=== PATIENT | female | born 1990 | race Two or more races ===

== ENCOUNTER 2025-04-20 13:46 | Emergency (ER) | payer OTHER ==
[~2025-04-20] VITALS: Ht 165.1 cm; Wt 93.0 kg
[2025-04-20 14:00] VITALS: BP 125/79; O2SAT 99
[2025-04-20 16:39] LABS: BASO % 0.3 % (0.1-1.2); EOS # 0.49 (0.04-0.54); EOS % 2.6 % (0.7-7.0); LYMPH # 3.74 (1.18-3.74); LYMPH % 20.2 % (19.3-53.1); MEAN PLATELET VOLUME 9.80 fl (9.4-12.4); MONO # 0.88 (0.24-0.82); MONO % 4.8 % (4.7-12.5); NEUT # 13.23 (1.56-6.13); NEUT % 71.5 % (34.0-71.1); RED CELL DISTRIBUTION WIDTH 13.3 % (11.6-14.4)
[2025-04-20 17:13] LABS: URINE APPEARANCE Cloudy; URINE BILIRRUBIN Negative (NEGATIVE); URINE BLOOD Large; URINE COLOR Yellow; URINE GLUCOSE Negative (NEGATIVE); URINE LEUKOCYTE Negative; URINE NITRATE Negative; URINE PROTEIN Trace (NEGATIVE); URINE UROBILINOGEN 0.2 E.U./dl
[2025-04-20 17:14] LABS: URINE BACTERIA 348.0 uL (0.0-1933); URINE EPITHELIAL CELLS 52.9 uL (0.0-38.8); URINE RBC 806.9 uL (0.0-20.8); URINE WBC 4.6 uL (0.0-23.2)
[2025-04-20 17:34] LABS: URINE CAST 0.00 uL (0.0-1.40); URINE KETONE 40 (NEGATIVE)
[2025-04-20 18:07] LABS: BASO % 0.2 % (0.1-1.2); EOS # 0.42 (0.04-0.54); EOS % 2.5 % (0.7-7.0); LYMPH # 3.47 (1.18-3.74); LYMPH % 20.4 % (19.3-53.1); MEAN PLATELET VOLUME 9.80 fl (9.4-12.4); MONO # 0.59 (0.24-0.82); MONO % 3.5 % (4.7-12.5); NEUT # 12.36 (1.56-6.13); NEUT % 72.9 % (34.0-71.1); RED CELL DISTRIBUTION WIDTH 13.4 % (11.6-14.4)
== END 2025-04-20 18:58 | disposition home or self-care (01) ==
LOC: ER 13:46
PROVIDERS: General Practice
DX: O20.9 Hemorrhage in early pregnancy, unspecified (principal); O99.281 Endocrine, nutritional and metabolic diseases complicating pregnancy, first trimester; E06.3 Autoimmune thyroiditis; Z3A.09 9 weeks gestation of pregnancy; Z87.09 Personal history of other diseases of the respiratory system